=== PATIENT | female | born 1975 | race Caucasian/White ===

== ENCOUNTER 2017-02-09 11:56 | Emergency (ER) | payer OTHER ==
[~2017-02-09] VITALS: Ht 160 cm; Wt 68.0 kg
[2017-02-09 11:57] VITALS: BP 123/74; PULSE 78; RESP 15; TEMP 98.2; O2SAT 98
[2017-02-09] MEDS ORDERED: DICL75TA PO (13:49)
[2017-02-09] MEDS ORDERED: BACL10TA PO (13:49)
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
== END 2017-02-09 14:16 | disposition home or self-care (01) ==
LOC: NETRI 11:56
DX: S80.00XA Contusion of unspecified knee, initial encounter (principal); S39.012A Strain of muscle, fascia and tendon of lower back, initial encounter; V43.52XA Car driver injured in collision with other type car in traffic accident, initial encounter; Y93.9 Activity, unspecified; Y92.9 Unspecified place or not applicable; Y99.9 Unspecified external cause status
CPT/HCPCS: 99283